=== PATIENT | female | born 1975 | race Caucasian/White ===

== ENCOUNTER 2018-02-18 08:46 | Observation (INO) | payer MEDICAID ==
[~2018-02-18] VITALS: Ht 160 cm; Wt 94.8 kg
[2018-02-18] MEDS ORDERED: PREN1TAB80 PO (09:15)
[2018-02-18 09:21] VITALS: BP 128/65
[2018-02-18 09:45] LABS: HEMOGLOBIN A1C 5.7 % (4.5-6.2)
[2018-02-26] MEDS ORDERED: IBUP-2071 PO (15:17)
== END 2018-02-18 11:25 | disposition home or self-care (01) ==
LOC: 4S 08:46
PROVIDERS: ADMIT Obstetrics & Gynecology; ATTEND Obstetrics & Gynecology
DX: O62.9 Abnormality of forces of labor, unspecified (principal); O09.523 Supervision of elderly multigravida, third trimester; Z3A.37 37 weeks gestation of pregnancy
CPT/HCPCS: 36415; 59025; 82947; 83036; G0378